=== PATIENT | female | born 1980 | race Caucasian/White ===

== ENCOUNTER 2017-01-05 13:13 | Emergency (ER) | payer OTHER ==
[~2017-01-05] VITALS: Ht 170.2 cm; Wt 100.0 kg
[~2017-01-05 13:13] MED LIST: MOTRIN800 MG PO; ULTRAM50 MG PO
[2017-01-05 14:19] LABS: HEMATOCRIT 44.5 % (36.0-46.0); MCH 28.2 PG (29.0-34.0); MCHC 32.8 G/DL (30.0-36.0); MCV 85.9 FL (83-99); MEAN PLAT.VOLUME 10.2 uM^3 (9.5-12.4); PLATELET COUNT 290 K/uL (156-360); RBC DIS.WIDTH-CV 12.6 % (11.8-14.6); RBC DIS.WIDTH-SD 39.5 % (39-53); RED BLOOD COUNT 5.18 M/uL (3.80-5.20); WHITE BLOOD COUNT 7.6 K/uL (4.1-10.2)
[2017-01-05 14:32] LABS: CHLORIDE 108 mEq/L (99-109); POTASSIUM 4.1 mEq/L (3.7-5.4); SODIUM 139 mEq/L (136-147)
[2017-01-05 14:34] LABS: GLUCOSE 87 mg/dL (70-99)
[2017-01-05 14:35] LABS: ANION GAP 10 MEQ/L (2-14)
[2017-01-05 14:37] LABS: GFR ESTIMATE (CALCULATED) > 59 mL/min/
[2017-01-05 14:38] LABS: UREA NITROGEN (BUN) 13 mg/dL (9-23)
[2017-01-05 14:58] LABS: TROP-I INTERPRETATION NEGATIVE; TROPONIN-I < 0.01 ng/mL (0.0-0.30)
[2017-01-05 17:20] LABS: D-DIMER ELISA 0.39 mg/L FEU (< 0.57)
[2017-01-05 18:14] VITALS: BP 141/89
== END 2017-01-05 18:23 | disposition home or self-care (01) ==
LOC: EME 13:13
PROVIDERS: Emergency Medicine
DX: R00.2 Palpitations (principal); R51 Headache; R06.00 Dyspnea, unspecified; Z82.49 Family history of ischemic heart disease and other diseases of the circulatory system; F43.10 Post-traumatic stress disorder, unspecified
CPT/HCPCS: 71020; 80048; 84484; 85027; 85379; 93005; 99281; 99284

== ENCOUNTER → 2017-08-03 | Outpatient (CLI) | payer OTHER | END | disposition home or self-care (01) | LOC: RES 07:50 | DX: R94.2 Abnormal results of pulmonary function studies (principal) | CPT/HCPCS: 94070; 94726; 94729 ==